=== PATIENT | male | born 1985 | race Caucasian/White ===

== ENCOUNTER 2022-09-21 07:02 | Emergency (ER) | payer OTHER ==
[~2022-09-21] VITALS: Ht 170.2 cm; Wt 86.4 kg
[2022-09-21] MEDS ORDERED: IBUPROFEN 600 MG TABLET PO ONE (07:30)
[2022-09-21 08:08] VITALS: BP 164/100; PULSE 72; RESP 18; TEMP 98.3
== END 2022-09-21 09:04 | disposition home or self-care (01) ==
LOC: EMS 07:05
DX: M54.9 Dorsalgia, unspecified (principal); V49.9XXA Car occupant (driver) (passenger) injured in unspecified traffic accident, initial encounter; Y93.89 Activity, other specified; Y92.89 Other specified places as the place of occurrence of the external cause; Y99.8 Other external cause status
CPT/HCPCS: 72128; 72131; 99284